=== PATIENT | female | born 1990 | race African-American/Black ===

== ENCOUNTER 2019-08-24 18:43 | Inpatient (IN) | payer OTHER, SELFPAY ==
[2019-08-24] VITALS (11 sets, daily range): BP systolic 121–186; BP diastolic 59–91; PULSE 52–74; RESP 16; TEMP 36.9; O2SAT 100
[2019-08-24] MEDS: OXYTOCIN 10 UNITS/ML VIAL 20 UNITS IM (19:18)
[2019-08-24] MEDS: MISOPROSTOL 200 MCG TABLET 1000 MCG RECTAL (19:23)
[2019-08-24] MEDS: OXYTOCIN 30 UNITS/NS 500 ML 30 UNITS/500 ML BAG 999 UNITS IV CONT (19:30)
[2019-08-24] MEDS: METHYLERGONOVINE MALEATE 0.2 MG/ML VIAL IM (19:35)
--- NOTE | 2019-08-24 19:39 | P.HP_ITS ---
Obstetrics - Admit Note Admission Note: record reviewed. No pertinent additions to the history and/or any subsequent changes in the physical findings that are not consistent with the expected course of the were found. Pt arrived in labor, rehabilitation assistant at , [facility] with pushing clear fluid, 10 cm/100/0 Additions to the history and/or subsequent changes in the physical findings follow. None.
--- NOTE | 2019-08-24 19:39 | PM.OBPRVD ---
OB - Delivery Note Procedure Delivery date: 08/24/19 Intrapartal events: Precipitous Labor < 3 hours Induction method: none Delivery monitor: external FHT and external uterine Route of delivery: Laceration description: None Specimen: No Estimated blood loss (mL): 510 Anesthesia type: None Disposition: other () Complications: uterus firm with massage, cytotec 1000mcg, 20 units pitocin IM and methergine given before uterus firm w/o massage, mother and baby in stable condition Baby Date of : 08/24/19 Time of : 19:12 Weeks of gestation at delivery: 38 gender: Male Weight (pounds): 6 Weight (ounces): 11 presentation: vertex position: Right Occiput Anterior Placenta delivery description: Spontaneous cord vessel description: 3 Vessels score one minute: 9 score five minutes: 9
[2019-08-24 20:22] LABS: Basophils Percent Auto 0.3 % (0.2-1.2); Eosinophils Absolute Auto 0.2 K/mm3 (0-0.3); Eosinophils Percent Auto 3.3 % (0-4.4); Hematocrit 38.8 % (37.0-47.0); Hemoglobin 12.2 g/dL (12.0-15.0); Immature Granulocyte Absolute 0.03 K/mm3 (0.00-0.031); Immature Granulocyte Percent A 0.5 % (0-0.5); Lymphocytes Percent Auto 26.7 % (18.3-44.2); Mean Corpuscular HGB Conc 31.4 g/dl (32-36); Mean Corpuscular Hemoglobin 22.7 pg (26-34); Mean Corpuscular Volume 72.1 fl (80-100); Mean Platelet Volume 10.9 fl (7.4-10.4); Monocytes Absolute Auto 0.8 K/mm3 (0.1-0.6); Monocytes Percent Auto 12.3 % (2.6-8.5); Neutrophils Absolute Auto 3.6 K/mm3 (1.3-6.7); Neutrophils Percent Auto 56.9 % (45.5-73.1); Platelet Count Result 350 k/mm3 (150-375); Red Blood Count 5.38 M/mm3 (4.2-5.4); Red Cell Distribution Width 13.9 % (11.5-14.5); White Blood Count 6.4 K/mm3 (4.5-10.0)
--- NOTE | 2019-08-24 21:33 | LDADM ---
This patient, Mdaeline Box, was admitted to Labor/Delivery/Recovery 105 on 08/24/19 at 18:43. Plans for labor, pain management and were discussed with patient. Patient/family oriented to hospital policies and general routines including ID bracelet, bed and alarms, visiting hours, pain management, procedures, bathroom and other care routines, personal items, smoking policy, room service/diet and guest tray routines, security routines, and visiting hours. Patient/Family are encouraged to report perceived risks to care and to ask questions if they do not understand what they are told or what they should do. See OBIX for further documentation.
[2019-08-24] MEDS: IBUPROFEN 600 MG TABLET PO (21:35)
[2019-08-24] MEDS: WITCH HAZEL 40 PADS 1 PAD TOPICAL (21:37)
[2019-08-24] MEDS: BENZOCAINE 20% AER SPR (*SP) 56 GM CAN 1 SPRAY TOPICAL (21:37)
--- NOTE | 2019-08-24 22:15 | OBPPTRN ---
Patient transferred to post room #279 via wheelchair. Support person present. Oriented to unit, room, information board, rooming in, admission packet and security measures. Patient verbalizes understanding. with patient.
[2019-08-25] MEDS: IBUPROFEN 600 MG TABLET PO ×4 (05:14→23:50)
[2019-08-25 05:49] LABS: Hematocrit 38.1 % (37.0-47.0); Hemoglobin 12.1 g/dL (12.0-15.0)
[2019-08-25 07:30] VITALS: BP 115/64; PULSE 77; RESP 16; TEMP 36.9; O2SAT 99
--- NOTE | 2019-08-25 07:47 | P.PNOB_ITS ---
OB - PN: Subj Subjective Date/time seen: 08/25/19 07:47 Patient comments: no complaints baby status: doing well [place] feeding status: exclusively breast feeding OB - PN: Obj Data Labs CBC & Chem 7: 08/25/19 05:09 Labs: Laboratory Results - last 24 hr 08/24/19 08/24/19 08/25/19 20:14 20:14 05:09 WBC 6.4 RBC 5.38 Hgb 12.2 12.1 Hct 38.8 38.1 MCV 72.1 L MCH 22.7 L MCHC 31.4 L RDW 13.9 Plt Count 350 MPV 10.9 H Immature Gran % (Auto) 0.5 Neut % (Auto) 56.9 Lymph % (Auto) 26.7 Hitchcock % (Auto) 12.3 H Eos % (Auto) 3.3 Baso % (Auto) 0.3 Lymph # (Auto) 1.70 Hitchcock # (Auto) 0.8 H Eos # (Auto) 0.2 Baso # (Auto) 0.0 Abs Immat Gran (auto) 0.03 Absolute Neuts (auto) 3.6 Absolute Nucleated RBC 0.0 Nucleated RBC % 0.0 Blood Type A Positive Antibody Screen Negative OB - PN A/P Plan day: 1 Plan: routine care Time Spent With Patient Time: Total time spent is greater than 50% in coordination of care (as documented) at patient's floor/unit and/or counseling patient: Review of Systems Review of Systems: All systems reviewed & are unremarkable except as noted in HPI and below Constitutional: Constitutional: Reports as per HPI Cardiovascular: Cardiovascular: Reports as per HPI Exam Const: General: comfortable Resp: Effort & Inspection: normal respiratory effort Psych: Appearance: grossly normal Affect: normal affect Attitude: cooperative
[2019-08-25] MEDS: MULTIVIT/MIN/PREN/FOL AC/IRON TABLET 1 TAB PO (08:32)
--- NOTE | 2019-08-25 08:45 | PC.NURSE ---
Consulted with patient, mother reports infant fed first child. has fed eagerly at times. is now sleepy and not latching. Reviewed infant feeding cues, frequencies, duration of feedings, feeding elimination flow sheet, and signs of adequate intake. Demonstrated stimulation techniques to wake for feeding. Assisted with to breast. Reviewed positioning/alignment in cross cradle, holding breast in U hold and guided asymmetrical latch on. was sleepy and made no effort to latch. Advised to skin to skin for up to 1 hour and call out for assist if is not awake and nursing. Mother would like infant bottle fed at this time due to duration from last feeding. Suggested mother initiate pumping to stimulate milk supply. Mother is willing to pump and will call out when ready.
[2019-08-25 13:21] LABS: Rapid Plasma Reagin Non-Reactive (NonReactive)
--- NOTE | 2019-08-25 14:20 | PC.NURSE ---
Breast pump provided due to ineffective feeding. Instructions given on breast pump care and usage, pumping schedule, nipple care, and collection and storage of breast milk. Encouraged [id number], breast massage and manual expression to stimulate supply. Reviewed flange size, placement and draw. Patient verbalizes and demonstrates understanding of instructions. requested mother call out when ready to actually pump.
[2019-08-25 18:18] VITALS: BP 109/69; PULSE 59; RESP 17; TEMP 37; O2SAT 96
--- NOTE | 2019-08-26 07:38 | P.PNOB_ITS ---
OB - PN: Subj Subjective Date/time seen: 08/26/19 07:38 Patient comments: no complaints baby status: doing well [place] feeding status: exclusively breast feeding OB - PN: Obj Data Labs CBC & Chem 7: 08/25/19 05:09 Labs: Laboratory Results - last 24 hr 08/24/19 20:14 RPR Non-reactive OB - PN A/P Plan day: 2 Plan: discharge home Time Spent With Patient Time: Total time spent is greater than 50% in coordination of care (as documented) at patient's floor/unit and/or counseling patient: Review of Systems Review of Systems: All systems reviewed & are unremarkable except as noted in HPI and below Constitutional: Constitutional: Reports as per HPI Cardiovascular: Cardiovascular: Reports as per HPI Exam Const: General: comfortable Resp: Effort & Inspection: normal respiratory effort Psych: Appearance: grossly normal Affect: normal affect Attitude: cooperative Judgement: Good judgement present (Psych)
[2019-08-26 08:05] VITALS: BP 110/61; PULSE 62; RESP 18; TEMP 37.3; O2SAT 100
[2019-08-26] MEDS: WITCH HAZEL 40 PADS 1 PAD TOPICAL (08:08)
[2019-08-26] MEDS: BENZOCAINE 20% AER SPR (*SP) 56 GM CAN 1 SPRAY TOPICAL (08:08)
[2019-08-26] MEDS: IBUPROFEN 600 MG TABLET PO (08:08)
[2019-08-26] MEDS: MULTIVIT/MIN/PREN/FOL AC/IRON TABLET 1 TAB PO (08:08)
--- NOTE | 2019-08-26 08:10 | PC.NURSE ---
Patient received instructions on viewing the discharge video Mother & Baby Care, The First Two Weeks online. Patient was given the opportunity and encouraged to ask questions. Patient verbalized understanding of information shared and has been given the mother/baby guide for home reference.
[2019-08-27 08:52] VITALS: BP 126/67; PULSE 87; RESP 20
--- NOTE | 2019-08-28 14:04 | P.DS_ITS ---
OB - DS: Summary OB Procedures : None OB Procedures Intrapartum: Spontaneous Vag Delivery OB Procedures: : None Time Spent with Patient Time attestation: Total time spent providing and/or coordinating discharge services: Discharge Plan Discharge Attending physician on discharge: Samra Ricci Consulting providers: Carmita Nj Discharging Clinician: Carmita Nj Patient Disposition: Home, Self-Care Activity: pelvic rest Diet: regular Discharge Instructions: Education: Mom and Baby Guide and Preeclampsia Handout Given to: Mother Follow-Up: Call your delivering provider's office for an appointment to be seen in: 4 Weeks Mom and baby should come to the [facility] for the follow-up appointment. Appointment Date/Time: August 27, 2019 at 8:00 am What to expect at your follow-up visit: Physical Assessment Call [phone] if you are unable to keep your appointment time. BREAST CARE: 1. Wear a snug supportive bra. 2. For engorgement discomfort: Bottle Feeding: A. May apply ice packs EPISIOTOMY/PERINEAL CARE: 1. Until bleeding stops, use your leroy bottle after urinating 2. Change your pad frequently throughout the day 3. You may take sitz baths several times a day (fill your bathtub with warm water and soak for 20 minutes.) Do NOT bathe in the water 4. No tub baths until seen by your physician - You may shower ACTIVITY: 1. Rest as much as possible. 2. Do not exercise or lift anything heavier than your baby (such as laundry or other children.) 3. Avoid stairs or driving as much as possible. 4. Do not put anything into the vagina. No douching, tampons, or sexual activity until seen by physician. NOTIFY PHYSICIAN IF YOU HAVE ANY QUESTIONS OR IF ANY OF THE FOLLOWING SYMPTOMS OCCUR: 1. If your perineum becomes red, swollen, or more painful than what you have experienced in the hospital. 2. If your vaginal bleeding becomes foul smelling. 3. If your vaginal bleeding becomes more heavy than a period or if your bleeding changes from pink to bright red. However, you may pass an occasional walnut- sized clot once or twice for the first week . 4. If you experience a sharp, shooting pain in you calves. 5. If you discover a hard, reddened area on your breast or if you experience flu-like symptoms. DIET: 1. Eat regular, well-balanced meals. 2. Drink plenty of fluids daily. Stand Alone Forms: General Discharge Information Follow-up/Referrals: Carmita Nj CNM [Certified Nurse [employer]] - 4 Weeks Discharge Medications: New ibuprofen 800 mg tablet 800 mg PO Q6H Qty: 30 RF: 0 Continued ferrous sulfate 325 mg (65 mg iron) Tablet 325 mg PO DAILY RF: 0 ascorbate calcium (vitamin C) 500 mg Tablet 500 mg PO DAILY RF: 0 PNV cmb#95-ferrous fumarate-FA [] 28 mg iron- 800 mcg Tablet 1 tablet PO DAILY RF: 0 Date of admission: 08/24/19 18:43 Primary Care Provider: PHYSICIAN,SPLIT LEATHER MOSSER Admitting Provider: Samra Ricci Discharge Date/Time: 08/26/19 11:36 Attending physician on admission: Samra Ricci
== END 2019-08-26 11:36 | disposition home or self-care (01) | DRG 560 ==
LOC: ANHLDR 20:13 → ANHOB2 22:17
PROVIDERS: Advanced Practice Midwife; Admitting Provider Obstetrics & Gynecology; Visit Provider Obstetrics & Gynecology
DX: O62.3 Precipitate labor (principal); Z37.0 Single live birth; Z3A.38 38 weeks gestation of pregnancy
CPT/HCPCS: 36415; 85014; 85018; 85025; 86592; 86850; 86900; 86901; A9270; J2210; J2590; J3010

== ENCOUNTER 2021-12-27 12:27 | Outpatient (CLI) | payer OTHER, SELFPAY ==
[2021-12-27 19:30] LABS: Basophils Percent Auto 0.6 % (0.2-1.2); Eosinophils Absolute Auto 0.5 K/mm3 (0-0.3); Eosinophils Percent Auto 7.5 % (0-4.4); Hematocrit 38.6 % (37.0-47.0); Hemoglobin 12.1 g/dL (12.0-15.0); Immature Granulocyte Absolute 0.01 K/mm3 (0.00-0.031); Immature Granulocyte Percent A 0.2 % (0-0.5); Lymphocytes Absolute Auto 2.68 K/mm3 (0.9-3.2); Lymphocytes Percent Auto 41.9 % (18.3-44.2); Mean Corpuscular HGB Conc 31.3 g/dl (32-36); Mean Corpuscular Hemoglobin 23.4 pg (26-34); Mean Corpuscular Volume 74.7 fl (80-100); Mean Platelet Volume 10.1 fl (7.4-10.4); Monocytes Absolute Auto 0.5 K/mm3 (0.1-0.6); Monocytes Percent Auto 7.2 % (2.6-8.5); Neutrophils Absolute Auto 2.7 K/mm3 (1.3-6.7); Neutrophils Percent Auto 42.6 % (45.5-73.1); Platelet Count Result 414 k/mm3 (150-375); Red Blood Count 5.17 M/mm3 (4.2-5.4); Red Cell Distribution Width 14.4 % (11.5-14.5); White Blood Count 6.4 K/mm3 (4.5-10.0)
[2021-12-27 20:11] LABS: Platelet Estimate Increased (Adequate)
[2021-12-27 20:12] LABS: Hypochromasia 1+ (NORMAL)
[2021-12-27 20:16] LABS: Alanine Aminotransferase 16 U/L (6-35); Albumin Level 4.6 g/dL (3.5-5.1); Alkaline Phosphatase 47 U/L (38-126); Anion Gap 14 mmol/L (8-16); Aspartate Amino Transferase 24 U/L (14-36); Bilirubin,Total 0.4 mg/dL (0.2-1.3); Blood Urea Nitrogen 13 mg/dL (7-17); Calcium 9.1 mg/dL (8.4-10.2); Carbon Dioxide 21 mmol/L (22-30); Chloride 105 mmol/L (98-107); Cholesterol 117 mg/dL (0-200); Estimated Glomerular Filt Rate > 60; Glucose 65 mg/dL (65-110); HDL Direct 32 mg/dL; Potassium 3.9 mmol/L (3.4-5.0); Sodium 140 mmol/L (137-145); Triglycerides 62 mg/dL (<150)
[2021-12-27 20:19] LABS: Schistocytes None Seen (NORMAL)
[2021-12-27 20:27] LABS: LDL Cholesterol Direct 69 mg/dL
[2021-12-27 20:31] LABS: Free T4 Free Thyroxine 1.19 ng/mL (0.78-2.19)
[2021-12-31 01:09] LABS: Thyroid Peroxidase Antibodies 1 IU/mL (<9)
== END 2021-12-27 12:28 | disposition home or self-care (01) ==
LOC: ANHGOSHLAB 12:28
PROVIDERS: PCP Family Medicine; Visit Provider Family Medicine
DX: E04.9 Nontoxic goiter, unspecified (principal); Z00.00 Encounter for general adult medical examination without abnormal findings
CPT/HCPCS: 36415; 80053; 80061; 84439; 84443; 85025; 86376

== ENCOUNTER → 2021-12-27 12:52 | Outpatient (CLI) | payer OTHER, SELFPAY ==
--- NOTE | ~2021-12-27 | US_ITS ---
EXAMINATION: US thyroid DATE: 12/27/2021 13:14 INDICATION: Nontoxic goiter, unspecified. TECHNIQUE: Multiple ultrasound images of the thyroid were obtained. COMPARISON: None. FINDINGS: The right thyroid lobe measures 5.3 x 1.8 x 1.8 cm. The left thyroid lobe measures 5.7 x 2.3 x 2.2 c m. In the right thyroid lobe, there is an 8 mm cyst (TI-RADS TR1). In the left thyroid lobe, there i s an 18 mm predominantly solid, hypoechoic, wider than tall nodule with lobulated margin without echo genic foci. In the left thyroid lobe, there is a 1.7 cm predominantly solid, hypoechoic, wider than t all nodule with ill-defined margin without echogenic foci. IMPRESSION: 1. Multinodular goiter. Ultrasound-guided fine-needle aspiration of 2 left thyroid nodules is recomme nded. Reviewed, dictated and finalized at location A. IMPRESSION: 1. Multinodular goiter. Ultrasound-guided fine-needle aspiration of 2 left thyr oid nodules is recommended.
== END ==
PROVIDERS: PCP Family Medicine; Visit Provider Family Medicine
DX: E04.2 Nontoxic multinodular goiter (principal)
CPT/HCPCS: 36415; 76536; 80053; 80061; 84439; 84443; 85025; 86376

== ENCOUNTER 2022-01-09 12:37 | Outpatient (CLI) | payer OTHER, SELFPAY ==
--- NOTE | ~2022-01-09 | US_ITS ---
EXAMINATION: US FNA additional DATE: 01/09/2022 13:58 INDICATION: Left thyroid nodules TECHNIQUE: A time-out was performed to verify the patient's name, date of , and procedure to be performed . The procedure and its benefits and risks were discussed with the patient. Risks specifically discus sed included bleeding and infection. The patient understood the risks and agreed to proceed. The neck was prepped and draped in the usual sterile manner. 4 mL 1% lidocaine was used for local anesthesia . Attention was first turned to the larger more cephalad nodule. 6 passes were made with a 25G needl e into the lesion. Appropriate needle location was documented with continuous sonographic guidance. Attention was then turned to the smaller more caudal nodule. An additional 6 passes were made with a 20 5G needle into the lesion. Appropriate needle location was documented with continuous sonographic guidance. A sterile bandage was applied. There were no immediate complications. FINDINGS: Grayscale ultrasound images demonstrate biopsy needles advanced into first the larger 2.8 cm TI RADS 4 left thyroid nodule and subsequently the smaller and more caudal 1.8 cm TI RADS 4 nodule also in th e left thyroid. IMPRESSION: 1. Successful ultrasound-guided fine needle aspiration of a 2.8 cm TI RADS 4 nodule at the superior to mid left thyroid. 2. Successful ultrasound guided fine needle aspiration of a 1.8 cm TI RADS 4 nodule at the inferior l eft thyroid. Reviewed, dictated and finalized at location A. IMPRESSION: 1. Successful ultrasound-guided fine needle aspiration of a 2.8 cm TI RADS 4 n odule at the superior to mid left thyroid. 2. Successful ultrasound guided fine needle aspiration of a 1.8 cm TI RADS 4 no dule at the inferior left thyroid.
--- NOTE | ~2022-01-09 | US_ITS ---
EXAMINATION: US FNA w image guidance DATE: 01/09/2022 13:58 INDICATION: Left thyroid nodules TECHNIQUE: A time-out was performed to verify the patient's name, date of , and procedure to be performed . The procedure and its benefits and risks were discussed with the patient. Risks specifically discus sed included bleeding and infection. The patient understood the risks and agreed to proceed. The neck was prepped and draped in the usual sterile manner. 4 mL 1% lidocaine was used for local anesthesia. Attention was first turned to the larger more cephalad nodule. 6 passes were made with a 25G needle into the lesion. Appropriate needle location was documented with continuous sonographic guidance. Att ention was then turned to the smaller more caudal nodule. An additional 6 passes were made with a 20 5G needle into the lesion. Appropriate needle location was documented with continuous sonographic eugenio dance. A sterile bandage was applied. There were no immediate complications. FINDINGS: Grayscale ultrasound images demonstrate biopsy needles advanced into first the larger 2.8 cm TI RADS 4 left thyroid nodule and subsequently the smaller and more caudal 1.8 cm TI RADS 4 nodule also in th e left thyroid. IMPRESSION: 1. Successful ultrasound-guided fine needle aspiration of a 2.8 cm TI RADS 4 nodule at the superior t o mid left thyroid. 2. Successful ultrasound guided fine needle aspiration of a 1.8 cm TI RADS 4 nodule at the inferior l eft thyroid. Reviewed, dictated and finalized at location A. IMPRESSION: 1. Successful ultrasound-guided fine needle aspiration of a 2.8 cm TI RADS 4 no dule at the superior to mid left thyroid. 2. Successful ultrasound guided fine needle aspiration of a 1.8 cm TI RADS 4 no dule at the inferior left thyroid.
== END 2022-01-09 12:38 | disposition home or self-care (01) ==
LOC: ANHIMG 12:40
PROVIDERS: PCP Family Medicine; Visit Provider Family Medicine
DX: E04.1 Nontoxic single thyroid nodule (principal)
CPT/HCPCS: 10005; 10006; 88173; 88305

== ENCOUNTER 2022-02-06 14:07 | Outpatient (CLI) | payer OTHER, SELFPAY ==
[2022-02-06 14:21] LABS: Basophils Percent Auto 0.4 % (0.2-1.2); Eosinophils Absolute Auto 0.7 K/mm3 (0-0.3); Eosinophils Percent Auto 9.6 % (0-4.4); Hematocrit 39.1 % (37.0-47.0); Hemoglobin 12.3 g/dL (12.0-15.0); Immature Granulocyte Absolute 0.01 K/mm3 (0.00-0.031); Immature Granulocyte Percent A 0.1 % (0-0.5); Lymphocytes Absolute Auto 3.02 K/mm3 (0.9-3.2); Lymphocytes Percent Auto 43.8 % (18.3-44.2); Mean Corpuscular HGB Conc 31.5 g/dl (32-36); Mean Corpuscular Hemoglobin 23.5 pg (26-34); Mean Corpuscular Volume 74.8 fl (80-100); Mean Platelet Volume 9.5 fl (7.4-10.4); Monocytes Absolute Auto 0.5 K/mm3 (0.1-0.6); Monocytes Percent Auto 7.7 % (2.6-8.5); Neutrophils Absolute Auto 2.6 K/mm3 (1.3-6.7); Neutrophils Percent Auto 38.4 % (45.5-73.1); Platelet Count Result 329 k/mm3 (150-375); Red Blood Count 5.23 M/mm3 (4.2-5.4); Red Cell Distribution Width 14.1 % (11.5-14.5); White Blood Count 6.9 K/mm3 (4.5-10.0)
[2022-02-06 16:50] LABS: Iron 110 ug/dL (37-170)
[2022-02-06 16:52] LABS: Alanine Aminotransferase 18 U/L (6-35); Albumin Level 4.5 g/dL (3.5-5.1); Alkaline Phosphatase 46 U/L (38-126); Anion Gap 11 mmol/L (8-16); Aspartate Amino Transferase 22 U/L (14-36); Bilirubin,Total 0.3 mg/dL (0.2-1.3); Blood Urea Nitrogen 14 mg/dL (7-17); Calcium 9.2 mg/dL (8.4-10.2); Carbon Dioxide 24 mmol/L (22-30); Chloride 104 mmol/L (98-107); Estimated Glomerular Filt Rate > 60; Glucose 84 mg/dL (65-110); Potassium 4.1 mmol/L (3.4-5.0); Sodium 139 mmol/L (137-145)
[2022-02-06 16:59] LABS: Percent Iron Saturation 42 % (20-50)
[2022-02-06 18:06] LABS: Folic Acid 6.2 ng/mL (2.76->20)
[2022-02-11 05:15] LABS: Hemoglobin 12.5 g/dL (11.7-15.5); MCH 23.8 pg (27.0-33.0); MCV 77.9 fL (80.0-100.0); Red Blood Cell Count 5.26 Mill/uL (3.80-5.10)
== END 2022-02-06 14:08 | disposition home or self-care (01) ==
LOC: ANHLAB 14:08
PROVIDERS: PCP Family Medicine; Visit Provider Internal Medicine Hematology & Oncology
DX: D64.9 Anemia, unspecified (principal)
CPT/HCPCS: 36415; 80053; 82607; 82728; 82746; 83021; 83540; 83550; 84238; 85025

== ENCOUNTER 2022-12-14 12:46 | Outpatient (CLI) | payer OTHER, SELFPAY ==
--- NOTE | ~2022-12-14 | US_ITS ---
EXAMINATION: US thyroid DATE: 12/14/2022 13:39 INDICATION: Nontoxic single thyroid nodule. TECHNIQUE: Multiple ultrasound images of the thyroid were obtained. COMPARISON: Ultrasound 12/27/2021 FINDINGS: The right thyroid lobe measures 5.8 x 1.8 x 2.3 cm. The left thyroid lobe measures 5.7 x 2.2 x 2.5 c m. In the right thyroid lobe, there is a 9 mm mixed cystic and solid, hypoechoic, wider than tall no dule with smooth margin without echogenic foci (TI-RADS TR3). In the left thyroid lobe, there is a 2. 5 cm predominantly solid, hypoechoic, wider than tall nodule with lobulated margin without echogenic foci (TR4). In the left thyroid lobe, there is a 2.7 cm predominantly solid, hypoechoic, wider than t all nodule with lobulated margin without echogenic foci (TR4). IMPRESSION: 1. Multinodular goiter, stable from 12/27/2021. Correlate with biopsy results from 01/09/2022. If the biopsy results were benign as reported by the patient, no follow-up would be needed. Reviewed, dictated and finalized at location E. IMPRESSION: 1. Multinodular goiter, stable from 12/27/2021. Correlate with biopsy results f rom 01/09/2022. If the biopsy results were benign as reported by the patient, n o follow-up would be needed.
== END 2022-12-14 12:47 | disposition home or self-care (01) ==
PROVIDERS: PCP Family Medicine; Visit Provider Physician Assistant
DX: R22.1 Localized swelling, mass and lump, neck (principal); E04.2 Nontoxic multinodular goiter
CPT/HCPCS: 76536